=== PATIENT | male | born 1950 | race Hispanic/Latino ===

== ENCOUNTER 2023-09-19 05:20 | Emergency (ER) | payer MEDICAID, SELFPAY ==
[2023-09-19 05:51] LABS: INR-International Normal Ratio 1.2; Prothrombin Time 15.9 sec (12.0-14.7)
[2023-09-19 05:52] LABS: PTT 31.4 sec (22.9-36.1)
[2023-09-19] MEDS ORDERED: Morphine 2 MG/ML VIAL ONE ×2 (05:52→08:18)
[2023-09-19 05:58] LABS: ALT (SGPT) 28 U/L (8-55); AST (SGOT) 22 U/L (5-34); Albumin 3.4 g/dL (3.4-4.8); Alkaline Phosphatase 154 U/L (40-110); Anion Gap 14 mmol/L (10-20); BUN (Urea Nitrogen) 15 mg/dL (8.4-25.7); Bilirubin, Total 0.9 mg/dL (0.2-1.2); Calc. Creatinine Clearance 0 mL/min (70-130); Calcium 8.2 mg/dL (7.8-10.44); Carbon Dioxide 21 mmol/L (23-31); Chloride 107 mmol/L (98-107); Estimated GFR 90; Globulin 3.3 g/dL (2.4-3.5); Glucose 131 mg/dL (83-110); Potassium 3.7 mmol/L (3.5-5.1); Protein, Total 6.7 g/dL (5.8-8.1); Sodium 138 mmol/L (136-145)
[2023-09-19 06:20] LABS: Hematocrit 28.7 % (42.0-52.0); Hemoglobin 8.5 g/dL (14.0-18.0); Red Blood Cell (RBC) Count 3.54 mill/uL (4.70-6.10); White Blood Cell (WBC) Count 7.6 10x3/uL (4.8-10.8)
[2023-09-19 06:21] LABS: Manual Diff?? YES; Mean Corpuscular HGB CONC 29.6 g/dL (32.0-36.0); Mean Corpuscular Volume 81.1 fl (78.0-98.0); Mean Platelet Volume 10.1 fL (7.4-10.4); RBC Distribution Width 16.1 % (11.5-14.5)
[2023-09-19 06:22] LABS: Anisocytosis SLIGHT = 6-15 cells (100X) (0-5/hpf); Band 2 % (5-11); Lymphocytes 15 % (21-51); MDiff Complete? YES; Monocytes 4 % (0-10); Neutrophil 79 % (42-75)
[2023-09-19 06:23] LABS: Platelet Adequacy Comment Appears Decreased
[2023-09-19 06:24] LABS: Platelet Count 82 10x3/uL (130-400)
[2023-09-19 08:37] LABS: INR-International Normal Ratio 1.3; Prothrombin Time 16.5 sec (12.0-14.7)
[2023-09-19 08:38] LABS: PTT 32.8 sec (22.9-36.1)
== END 2023-09-19 09:38 | disposition short-term general hospital (02) ==
LOC: MADERS 05:20 → MERGE 05:20 → EEVIPCON 05:20 → UNMERGE 05:20 → MADERS 09:38
DX: S72.142A Displaced intertrochanteric fracture of left femur, initial encounter for closed fracture (principal); D69.6 Thrombocytopenia, unspecified; D64.9 Anemia, unspecified; I10 Essential (primary) hypertension; W18.30XA Fall on same level, unspecified, initial encounter
CPT/HCPCS: 51702; 71045; 80053; 85610; 85730; 96374; 96376; G0390; J2272